=== PATIENT | female | born 1970 | race Caucasian/White ===

== ENCOUNTER → 2016-12-03 | Outpatient (CLI) | payer OTHER | LOC: RAD 07:30 | PROVIDERS: ATTEND Family Medicine | DX: R10.13 Epigastric pain (principal); R93.5 Abnormal findings on diagnostic imaging of other abdominal regions, including retroperitoneum | CPT/HCPCS: 76700 ==

== ENCOUNTER → 2016-12-26 | Outpatient (CLI) | payer OTHER ==
--- NOTE | 2016-12-26 09:35 | Diagnostic Imaging Report ---
PROCEDURE: CT of the abdomen with and without contrast and CT of the pelvis with contrast. TECHNIQUE: Precontrast acquisitions were acquired through the abdomen. Multiple contiguous axial images were obtained through the abdomen and pelvis after administration of intravenous contrast. INDICATION: Left upper quadrant pain. FINDINGS: The lung bases are clear. The liver appears normal. Gallbladder and bile ducts are normal. Pancreas and spleen are normal. Adrenal glands are normal. Kidneys appear normal. There is good opacification of the abdominal vessels and organs following IV contrast which appear normal. The stomach is not distended. Small bowel appears normal. Colon shows normal stool and gas pattern. There are no changes to indicate diverticulitis. The appendix is visualized and not dilated. No appendicoliths. Uterus is not enlarged. There is a cyst in the right adnexa measuring 3 cm. There is a small amount of free fluid in the cul-de-sac. No intra-abdominal adenopathy. There is no free air. IMPRESSION: 1. Right ovarian cyst simple in appearance measuring 3 cm. 2. There is a small amount of free fluid in the cul-de-sac. 3. No other abnormalities demonstrated. Dictated by: Dictated on workstation # [id number]
== END ==
LOC: RAD 08:07
PROVIDERS: ATTEND Family Medicine
DX: R10.12 Left upper quadrant pain (principal); N83.292 Other ovarian cyst, left side
CPT/HCPCS: 74178; Q9967